=== PATIENT | female | born 1970 | race Two or more races ===

== ENCOUNTER 2024-03-23 10:21 | Inpatient (IN) | payer MEDICAID, OTHER ==
[~2024-03-23] VITALS: Ht 152.4 cm; Wt 73.0 kg
[2024-03-23 11:17] LABS: Basophils # (auto) 0 10 ^3/uL (0-0.2); Basophils % (auto) 0.2 % (0.0-2.0); Eosinophils # (auto) 0 10 ^3/uL (0-0.8); Eosinophils % (auto) 0.3 % (0.0-7.0); Hematocrit 37.7 % (36.0-46.0); Hemoglobin 12.9 g/dL (12.2-16.2); Lymphocytes # (auto) 1.2 10 ^3/uL (0.4-5.4); Lymphocytes % (auto) 9.1 % (10.0-50.0); Mean Corpuscular Hemoglobin 30.9 pg (28.0-32.0); Mean Corpuscular Hgb Conc. 34.1 g/dL (32.0-36.0); Mean Corpuscular Volume 90.6 fL (80.0-100.0); Monocytes # (auto) 0.9 10 ^3/uL (0-1.3); Monocytes % (auto) 6.7 % (0.0-12.0); Neutrophils # (auto) 10.7 10 ^3/uL (1.6-8.6); Neutrophils % (auto) 83.7 % (37.0-80.0); Platelet Count (auto) 271 10^3/uL (140-450); Red Blood Cells 4.16 10^6/uL (4.0-5.20); Red Cell Distribution Width 13.6 % (11.8-14.3); White Blood Cell 12.7 10^3/uL (4.4-10.8)
[2024-03-23 11:21] LABS: Urine Bacteria None Seen /hpf (None Seen)
[2024-03-23 11:27] LABS: Chloride 105 mmol/L (98-107); Potassium 3.8 mmol/L (3.5-5.1); Sodium 139 mmol/L (136-145)
[2024-03-23 11:28] LABS: Anion Gap 5 (5-15); Carbon Dioxide 29 mmol/L (20-31)
[2024-03-23 11:29] LABS: Calcium 9.4 mg/dL (8.7-10.4)
[2024-03-23] MEDS: MORPHINE SULFATE 4 MG/ML SYR/VIAL IV ONE ×2 (11:31→14:35)
[2024-03-23] MEDS: SODIUM CHLORIDE 0.9% 1,000 ML IV ONE (11:31)
[2024-03-23] MEDS: ONDANSETRON HCL 4 MG/2 ML VIAL IV ONE (11:32)
[2024-03-23 11:33] LABS: BUN/Creatinine Ratio 13.2 (10.0-20.0); Blood Urea Nitrogen 9 mg/dL (9-23); Glucose 107 mg/dL (74-106)
[2024-03-23 11:44] LABS: Urine Blood Negative /uL (Negative); Urine Clarity Clear (Clear); Urine Color Light-Yellow (Yellow); Urine Protein, UAD Negative (Negative); Urine Specific Gravity 1.014 (1.001-1.035); Urine Urobilinogen Normal (Negative); Urine WBC 1 /hpf (0 - 5)
[2024-03-23] MEDS ORDERED: IOHEXOL 300 MG/ML 100ML BOTTLE IJ ONE (11:55)
[2024-03-23] MEDS: metroNIDAZOLE 500MG/100ML 100 ML IV ONE (14:36)
[2024-03-23] MEDS: ceFAZolin 2 GM/D5W50ml 50 ML IV ONE (15:05)
[2024-03-23] MEDS ORDERED: NITROGLYCERIN 0.4 MG SL TAB SL PRN (16:45)
[2024-03-23] MEDS ORDERED: DOCUSATE SOD 100 MG CAP PO PRN (16:45)
[2024-03-23] MEDS: PANTOPRAZOLE 40 MG/10 ML VIAL INJ IV ONE (17:08)
[2024-03-23] MEDS: PIPERACILLIN-TAZOB 3.375GM 100 ML IV ONE (17:08)
[2024-03-23] MEDS: SODIUM CHLORIDE 0.9% 1,000 ML IV SCH (17:09)
[2024-03-23] MEDS: ONDANSETRON HCL 4 MG/2 ML VIAL IV PRN (17:12)
[2024-03-23] MEDS: MORPHINE SULFATE INJ 2 MG/ml SYRG IV PRN (17:13)
[2024-03-24] MEDS: PIPERACILLIN-TAZOB 3.375GM 100 ML IV SCH (00:21)
[2024-03-24 04:54] LABS: Basophils # (auto) 0 10 ^3/uL (0-0.2); Basophils % (auto) 0.4 % (0.0-2.0); Eosinophils # (auto) 0.1 10 ^3/uL (0-0.8); Eosinophils % (auto) 0.7 % (0.0-7.0); Hemoglobin 11.8 g/dL (12.2-16.2); Lymphocytes # (auto) 1.5 10 ^3/uL (0.4-5.4); Lymphocytes % (auto) 16.2 % (10.0-50.0); Mean Corpuscular Hemoglobin 31.1 pg (28.0-32.0); Mean Corpuscular Hgb Conc. 34.7 g/dL (32.0-36.0); Mean Corpuscular Volume 89.6 fL (80.0-100.0); Monocytes # (auto) 0.7 10 ^3/uL (0-1.3); Monocytes % (auto) 7.9 % (0.0-12.0); Neutrophils # (auto) 6.8 10 ^3/uL (1.6-8.6); Neutrophils % (auto) 74.8 % (37.0-80.0); Platelet Count (auto) 231 10^3/uL (140-450); Red Blood Cells 3.79 10^6/uL (4.0-5.20); Red Cell Distribution Width 13.8 % (11.8-14.3)
[2024-03-24 05:17] LABS: Alanine Aminotransferase 14 U/L (7-40); Alkaline Phosphatase 70 U/L (46-116); Anion Gap 6 (5-15); Aspartate Aminotransferase < 8 U/L (13-40); BUN/Creatinine Ratio 9.2 (10.0-20.0); Bilirubin, Total 0.6 mg/dL (0.2-1.0); Blood Urea Nitrogen 6 mg/dL (9-23); Carbon Dioxide 28 mmol/L (20-31); Chloride 106 mmol/L (98-107); Glucose 96 mg/dL (74-106); Potassium 3.5 mmol/L (3.5-5.1); Sodium 140 mmol/L (136-145); Total Protein 6.5 g/dL (5.7-8.2)
[2024-03-24 07:35] VITALS: RESP 14
[2024-03-24] MEDS: PANTOPRAZOLE 40 MG/10 ML VIAL INJ IV SCH (10:00)
[2024-03-24 10:54] VITALS: PULSE 66; RESP 18; O2SAT 97
[2024-03-24 12:09] VITALS: BP 96/47; PULSE 65; RESP 19; TEMP 98.5; O2SAT 97
[2024-03-24 13:00] VITALS: BP 114/48; PULSE 67; RESP 22; TEMP 98.3; O2SAT 96
[2024-03-24 20:00] VITALS: PULSE 62; RESP 18; O2SAT 100
[2024-03-24 22:00] VITALS: BP 100/48; PULSE 62; RESP 18; TEMP 98.7; O2SAT 100
[2024-03-25] VITALS (8 sets, daily range): BP systolic 92–117; BP diastolic 36–62; PULSE 58–68; RESP 16–19; TEMP 98–98.9; O2SAT 95–100
[2024-03-26 01:00] VITALS: BP 100/51; PULSE 66; RESP 18; TEMP 98.1; O2SAT 96
[2024-03-26 05:00] VITALS: BP 109/51; PULSE 59; RESP 18; TEMP 98.7; O2SAT 98
[2024-03-26 08:15] VITALS: RESP 18
[2024-03-26 09:00] VITALS: BP 109/65; PULSE 60; RESP 22; TEMP 98.1; O2SAT 97
[2024-03-26] MEDS ORDERED: HYDR-4902 PO (10:36)
[2024-03-26] MEDS ORDERED: METR-344 PO (10:36)
[2024-03-26] MEDS ORDERED: LEVO500T91 PO (10:36)
[2024-03-26 13:00] VITALS: BP 111/50; PULSE 58; RESP 22; TEMP 97.9; O2SAT 96
== END 2024-03-26 13:45 | disposition home or self-care (01) | DRG 720 ==
LOC: ER 10:21 → OVERFLOW 16:47 → CENTRAL 03-24 09:30
PROVIDERS: ADMIT Nurse Practitioner Family; ATTEND Family Medicine
DX: A41.9 Sepsis, unspecified organism (principal); K57.32 Diverticulitis of large intestine without perforation or abscess without bleeding; E11.9 Type 2 diabetes mellitus without complications; E86.0 Dehydration; F17.200 Nicotine dependence, unspecified, uncomplicated; I10 Essential (primary) hypertension; Z98.891 History of uterine scar from previous surgery
CPT/HCPCS: 36415; 74177; 80048; 80053; 81001; 85025; 99291; G0378; J2405; J2470; J2543; J3490